=== PATIENT | female | born 1945 | race Caucasian/White ===

== ENCOUNTER 2017-04-02 22:50 | Observation (INO) | payer MEDICARE, OTHER ==
--- NOTE | ~2017-04-02 | DS ---
Discharge Summary [facility] [address] [place]. [address] NAME: MARLINE PUTNAM : 43 STATUS : DIS Esther PAT#: [id number] AGE: 71 ADM/REG DATE : 04/02/17 MR#: [id number] REPORT SERV DATE: 04/06/17 DICTATED BY: HUSSEIN BURCH DATE: 04/05/17 REPORT STATUS : Draft TRANSCRIBED BY: BEVERLY DATE: 04/05/17 ADMISSION DATE: 04/02/2017 DISCHARGE DATE: 04/05/2017 DISCHARGE DIAGNOSES: 1. Orthostatic hypotension. 2. Severe diarrhea. 3. Acute enteritis. 4. Presyncope. 5. Headaches. 6. Sinus bradycardia. 7. Chronic obstructive pulmonary disease/mild emphysema. DISCHARGE CONDITION: Stable. HISTORY OF PRESENT ILLNESS: For detailed HPI, please make reference to Dr. Cornelius Moran's dictation on 04/11/2017. In brief, this is a 71-year-old female with medical history of gastroesophageal reflux disease, COPD, who presented to [facility] Emergency Department with complaints of generalized weakness, dizziness, fatigue and diarrhea. Of note, prior to presentation of her symptoms, the patient reported that she ate a rewarmed meal of rice, chicken, jello, and milk. Went to bed, five hours later developed severe diarrhea, started feeling dizzy. However, she has developed a headache that was the worst headache of her life. Hence, she decided to go to the emergency department for further evaluation. At the emergency room at [facility], a chest x-ray was done that was concerning for possible atypical pneumonia versus pulmonary edema. Given the presence of bradycardia on EKG, [facility] decided to transfer the patient to our facility because the patient's primary Cardiology is affiliated with [facility]. On arrival to [facility], vitals, temperature was 96.7, pulse was 63 beats per minute, respiratory rate 16 cycles per minute, saturating 94% on room air. Blood pressure was 102/52, repeat blood pressure was in the 90s. Physical exam noted for mild inspiratory rales bilaterally in the lower lung bases. LABORATORY DATA: Notable for a white cell count of 10.1, hemoglobin of 14.4, hematocrit of 44.2, platelets of 275. Sodium of 139, creatinine of 0.7. An assessment of dizziness secondary to possible orthostatic hypotension/dehydration as well as a possible pneumonia was made on initial evaluation, and patient was admitted to the Hospitalist Service. HOSPITAL COURSE: 1. Presyncope. The patient continued to have persistent dizziness despite aggressive IV fluid resuscitation. She was feeling lightheaded during the course of this admission. No loss of consciousness. No syncopal episode. The patient underwent a CT of the brain that shows no acute intracranial pathology. Given persistent dizziness despite IV fluid resuscitation, an MRI of the brain was obtained that was essentially within normal limits. MRA of the cranial circulation does not demonstrate a significant focal stenosis or aneurysm. MRI of the neck does not demonstrate carotid artery or vertebral Discharge Summary [facility] [address] [facility] [place]. [address] NAME: MARLINE PUTNAM : 43 STATUS : DIS Esther PAT#: [id number] AGE: 71 ADM/REG DATE : 04/02/17 MR#: [id number] REPORT SERV DATE: 04/06/17 DICTATED BY: HUSSEIN BURCH DATE: 04/05/17 REPORT STATUS : Draft TRANSCRIBED BY: BEVERLY DATE: 04/05/17 artery stenosis. The patient was continued on IV fluid resuscitation with symptomatic treatment. Prior to discharge, the patient reported that her headache had completely resolved. Dizziness and presyncopal episodes have also completely resolved. Also during the course of this admission, given no persistent cough, no fever, a procalcitonin was obtain that was less than 0.05. A CT of the chest was also obtained that shows no evidence of pneumonia, hence empiric IV antibiotics was discontinued prior to discharge. Pneumonia was ruled out in this patient prior to discharge. The patient was advised to continue follow up with her primary care physician. 2. Sinus bradycardia. The patient is well known to [facility] Cardiology. We obtained medical record from [facility] that showed the patient had recently undergone an extensive cardiac workup including a cardiac stress test for evaluation of sinus bradycardia. The patient's heart rate remains in the 50s throughout the course of this admission. The patient was not on any beta hina prior to presentation or during the course of this admission. Prior to discharge, heart rate was in the 50s, but she remained asymptomatic. The patient was advised to continue follow up with her primary care and travel cota. 3. Acute enteritis likely secondary to food poisoning. The patient presented with worsening acute diarrhea five hours after eating a rewarmed meal. The patient's diarrhea was treated symptomatically and completely resolved prior to discharge. The patient was advised to continue follow up with her primary care physician. DISCHARGE MEDICATIONS: 1. Aspirin 81 mg p.o. daily. 2. Protonix 40 mg p.o. daily. DISCHARGE DISPOSITION: Home. DISCHARGE FOLLOWUP: 1. Follow up with primary care physician within one to two weeks of discharge. 2. Follow up with Cardiology within two to three weeks of discharge. DISCHARGE ACTIVITIES: As tolerated. 35 minutes was used to prepare this patient's discharge, reconcile medication, advise the patient on discharge plans and followup. DICTATED BY: MD SILVINO Earl/BEVERLY Hussein Burch MD / [id number] Discharge Summary [address] [address] NAME: MARLINE PUTNAM : 43 STATUS : DIS Esther PAT#: [id number] AGE: 71 ADM/REG DATE : 04/02/17 MR#: [id number] REPORT SERV DATE: 04/06/17 DICTATED BY: HUSSEIN BURCH DATE: 04/05/17 REPORT STATUS : Draft TRANSCRIBED BY: BEVERLY DATE: 04/05/17 CC: MD Maida Earl
--- NOTE | ~2017-04-02 | HP ---
History And Physical [address] [place]. [address] NAME: MARLINE PUTNAM : 43 STATUS : ADM Esther PAT#: [id number] AGE: 71 ADM/REG DATE : 04/02/17 MR#: [id number] REPORT SERV DATE: 04/03/17 DICTATED BY: JAVIER PRUITT DATE: 04/03/17 REPORT STATUS : Draft TRANSCRIBED BY: MODL DATE: 04/03/17 DATE OF ADMISSION: 04/02/2017 POINT OF ENTRY: Transfer from [facility] Emergency Department. PRIMARY CARE PHYSICIAN: Nurse practitioner, Maida Donahue. PRIMARY SOFTWARE PACKAGING ENGINEER: Keyon Howard M.D. CHIEF COMPLAINT: Headache and dizziness. HISTORY OF PRESENT ILLNESS: Ms. Putnam is a 71-year-old female with a history of gastroesophageal reflux disease as well as COPD, who presents to the emergency department at [facility] Emergency Department with a one-day history of multiple complaints including headache, dizziness, weakness, fatigue as well as a recent episode of diarrhea. The patient states that she was feeling well up until Tuesday morning when she had a severe bout of diarrhea and abdominal pain which lasted a few hours and then has resolved on its own. She felt better this morning, but then as the day progressed she felt very weak and dizzy as well as fatigued. She has developed a very severe bitemporal headache with some neck pain. Just generally not feeling well. She presented to an Urgent Care Facility near her home and then was referred to the emergency department. In the emergency department at [facility] she underwent a CT scan of the brain that was unremarkable. Chest x-ray concerning for atypical pneumonia versus pulmonary edema. Labs were otherwise unremarkable. Vitals were notable for bradycardia. EKG showed sinus bradycardia with heart rates in the low 50s. The patient was given some fluids and antibiotics, and transferred to [facility]. She denies any fevers, night sweats, chills, chest pain, palpitations, shortness of breath, cough, sputum production, wheezing, sinus congestion, sinus drainage, abdominal pain, nausea, vomiting, constipation, dysuria, lower extremity edema, melena, hematochezia, hemoptysis, or hematemesis. She states that the dizziness is primarily with exertion and ambulation, not at rest or with changes in position while supine. A comprehensive system otherwise negative unless listed in history of present illness. PAST MEDICAL HISTORY: 1. Gastroesophageal reflux disease. 2. COPD. 3. Bradycardia. PAST SURGICAL HISTORY: 1. Bilateral cataracts. 2. Abdominal hysterectomy. History And Physical [address] [place]. [address] NAME: MARLINE PUTNAM : 43 STATUS : ADM Esther PAT#: [id number] AGE: 71 ADM/REG DATE : 04/02/17 MR#: [id number] REPORT SERV DATE: 04/03/17 DICTATED BY: JAVIER PRUITT DATE: 04/03/17 REPORT STATUS : Draft TRANSCRIBED BY: BEVERLY DATE: 04/03/17 ALLERGIES: TO CODEINE. HOME MEDICATIONS: 1. Aspirin 81 mg daily. 2. Multivitamin one tablet daily. 3. Protonix 40 mg daily. SOCIAL HISTORY: She is a former smoker, quit about nine years ago. Has about at least a 50- pack year smoking history. Denies alcohol. Denies illicits. FAMILY MEDICAL HISTORY: Mother with diabetes. Father with COPD. Siblings with diabetes. LABS AND IMAGING: All obtained from transfer records from [facility] Emergency Department. 1. White count is 10.1, hemoglobin is 14.4, hematocrit is 44.2, and platelet count is 275. 2. Sodium is 139, potassium 4.0, chloride 101, carbon dioxide 30, BUN 14, creatinine 0.7, glucose is 113, calcium is 10.3, protein is 8.1, albumin is 4.3, bilirubin is 0.3, ALT is 35, AST 31, and alkaline phosphatase is 111. 3. Lipase is 222. 4. Troponin less than 0.02. 5. Urinalysis; spec gravity is 1.015. No evidence of any infection. 6. Chest x-ray per outside Radiology review shows prominent interstitial markings concerned for atypical pneumonia, superimposed in the setting of COPD versus possible pulmonary edema. 7. CT scan of the brain shows no acute intracranial abnormality. 8. Chest x-ray performed here per my review also shows prominent interstitial markings concerning for heart failure type pattern versus infiltrate or atelectasis. 9. EKG per my review shows sinus bradycardia with a heart rate of 51, but no evidence of any acute ischemia or infarction. PHYSICAL EXAMINATION: VITAL SIGNS: Temperature is 96.9 degrees Fahrenheit, pulse is 53, respirations 16, saturating 94% on room air, and blood pressure 102/52. GENERAL: The patient is awake, alert, and in no acute distress. Resting comfortably in bed. She is a well-developed, well-nourished, female. Sister is at bedside. HEENT: Atraumatic and normocephalic. Moist mucous membranes. Pupils are equal, round, reactive to light and accommodation. Extraocular eye movements intact. No scleral icterus. NECK: No jugular venous distention. No carotid bruits. CARDIAC: Bradycardic rate, regular rhythm. No murmurs or gallops. Normal S1, S2. LUNGS: Does have some inspiratory rales in the bilateral bases, but no wheezes, rhonchi, or crackles appreciated. ABDOMEN: Soft, nontender, and nondistended. Good bowel sounds. No rebound, guarding, or rigidity. EXTREMITIES: Warm and perfused. No cyanosis, clubbing, or edema. SKIN: Warm and dry. PSYCH: Affect appropriate. History And Physical [address] [address] NAME: MARLINE PUTNAM : 43 STATUS : ADM Esther PAT#: [id number] AGE: 71 ADM/REG DATE : 04/02/17 MR#: [id number] REPORT SERV DATE: 04/03/17 DICTATED BY: JAVIER PRUITT DATE: 04/03/17 REPORT STATUS : Draft TRANSCRIBED BY: BEVERLY DATE: 04/03/17 NEURO: Alert and oriented x3. Cranial nerves 2 through 12 are grossly intact. Speech is normal. Gait not assessed. ASSESSMENT AND PLAN: Ms. Putnam is a 71-year-old female, who presents to [facility] with multiple somatic complaints including headaches, dizziness, weakness, and recent diarrheal illness, and was found to have evidence of bradycardia possible dehydration as well as possible pneumonia. PROBLEM LIST: 1. Sinus bradycardia. 2. Possible pneumonia versus pulmonary edema. 3. Dehydration. 4. Headache. 5. Dizziness. PLAN: 1. Sinus bradycardia. Per review of records available to me in [facility] it appears that the patient's bradycardia is likely chronic as there are multiple EKGs from 2016 which document sinus bradycardia with heart rates as low as 45 and as high as the upper 50s. She is not on any beta blockers. We will check thyroid function studies. Given the chronic nature of bradycardia I doubt that the patient's complaints of weakness, fatigue, and dizziness are due to her bradycardia, but we will continue to monitor. 2. Possible pneumonia versus pulmonary edema. The patient does have some abnormal appearing chest x-rays. Of note, per review of history it appears the patient does have some scarring on previous x-rays and CT scan of the chest which I am unable to access at this time. We will follow up Radiology read of our chest x-ray here as well as obtain a CT scan of the chest for better imaging. We will empirically treat for pneumonia at this time. Also checking a BNP level to evaluate for possible pulmonary edema; however, she appears euvolemic on the rest of my exam. 3. Dehydration. The patient does have a mildly elevated BUN to creatinine ratio as well as elevated spec gravity concerning for possible dehydration. We will provide some gentle IV fluid hydrations. 4. Dizziness. I suspect this is all due to maybe some mild dehydration due to a recent diarrheal illness. Provide some IV fluid hydration and continue to monitor. Checking orthostatic vital signs. The patient denies any vertiginous type symptoms. 5. Headache. CT scan of the brain was unremarkable. We will trial some NSAID and if need be Reglan or Tylenol for symptomatic relief. 6. DVT prophylaxis. Lovenox subcu. CODE STATUS: The patient wished to be full code. JCB/RADHAL Javier Pruitt MD History And Physical [address] [address] NAME: MARLINE PUTNAM : 43 STATUS : ADM Esther PAT#: [id number] AGE: 71 ADM/REG DATE : 04/02/17 MR#: [id number] REPORT SERV DATE: 04/03/17 DICTATED BY: JAVIER PRUITT DATE: 04/03/17 REPORT STATUS : Draft TRANSCRIBED BY: MODL DATE: 04/03/17 / [id number] CC: Iwayemi O. MD Maida Morris NP Allen E Atchley, M.D.
[~2017-04-02 22:50] MED LIST: ASAB PO; CENTRUM PO; CINNAMONPO PO; FISH OIL OTC PO; GARLIC OTC PO; HARD NAILS PO; PROTONIX PO; SUCR PO; VITAMIN D OTC PO; ZANTAC 150 PO
[2017-04-02] MEDS ORDERED: HALF81 PO (23:17)
[2017-04-02] MEDS ORDERED: PROTONIX PO (23:17)
[2017-04-02] MEDS ORDERED: THERGRANM PO (23:17)
[2017-04-03 01:28] LABS: TROPONIN I <0.02 NG/ML (<0.05); ULTRASENSITIVE TSH 0.661 MCIU/ML (0.358-3.740)
[2017-04-03 05:06] LABS: BASOPHILS 0.3 %; BASOPHILS ABSOLUTE 0.02 10/3/uL (0.0-0.16); EOSINOPHILS 3.9 %; EOSINOPHILS ABSOLUTE 0.26 10/3/uL (0.0-0.53); HEMATOCRIT 39.7 % (36.0-48.0); HEMOGLOBIN 12.8 g/dL (12.0-16.0); IMMATURE GRANULOCYTES 0.2 %; IMMATURE GRANULOCYTES ABSOLUTE 0.01 10/3/uL (0.0-0.11); LYMPHOCYTES 28.7 %; MEAN CORPUS HGB CONC 32.2 g/dL (32.0-36.0); MEAN CORPUSCULAR HEMOGLOB 32.1 pg (26.0-34.0); MEAN CORPUSCULAR VOLUME 99.5 fL (80-100); MEAN PLATELET VOLUME 9.7 fL (9.2-13.0); MONOCYTES 12.7 %; MONOCYTES ABSOLUTE 0.84 10/3/uL (0.21-1.20); NEUTROPHILS 54.2 %; PLATELET COUNT 245 10/3/uL (150-400); RBC DISTRIBUTION WIDTH 12.5 % (12.0-16.0); RED CELL COUNT 3.99 10/6/uL (4.0-5.6); WHITE BLOOD CELLS 6.6 10/3/uL (4.5-10.5)
[2017-04-03 05:07] LABS: MANUAL DIFF NO %
[2017-04-03 05:20] LABS: BUN (BLOOD UREA NITROGEN) 9 MG/DL (6-23); CALCIUM, SERUM 8.5 MG/DL (8.5-10.4); CHLORIDE, SERUM 111 MMOL/L (96-112); CO2 (CARBON DIOXIDE) 29 MMOL/L (24-34); CREATININE 0.68 MG/DL (0.55-1.02); GFR AFRICAN AMERICAN 101 ML/MIN (>=60); GFR NON AFRICAN AMERICAN 87 ML/MIN (>=60); GLUCOSE, SERUM 105 MG/DL (60-99); POTASSIUM, SERUM 3.9 MMOL/L (3.5-5.3); SODIUM, SERUM 144 MMOL/L (135-148)
[2017-04-04 04:54] LABS: BASOPHILS 0.5 %; BASOPHILS ABSOLUTE 0.03 10/3/uL (0.0-0.16); EOSINOPHILS 5.9 %; EOSINOPHILS ABSOLUTE 0.34 10/3/uL (0.0-0.53); HEMATOCRIT 38.6 % (36.0-48.0); HEMOGLOBIN 12.4 g/dL (12.0-16.0); IMMATURE GRANULOCYTES 0.3 %; IMMATURE GRANULOCYTES ABSOLUTE 0.02 10/3/uL (0.0-0.11); LYMPHOCYTES 35.2 %; LYMPHOCYTES ABSOLUTE 2.02 10/3/uL (0.67-4.30); MEAN CORPUS HGB CONC 32.1 g/dL (32.0-36.0); MEAN CORPUSCULAR HEMOGLOB 32.3 pg (26.0-34.0); MEAN CORPUSCULAR VOLUME 100.5 fL (80-100); MEAN PLATELET VOLUME 10.1 fL (9.2-13.0); MONOCYTES ABSOLUTE 0.63 10/3/uL (0.21-1.20); NEUTROPHILS 47.1 %; PLATELET COUNT 229 10/3/uL (150-400); RBC DISTRIBUTION WIDTH 12.7 % (12.0-16.0); RED CELL COUNT 3.84 10/6/uL (4.0-5.6); WHITE BLOOD CELLS 5.7 10/3/uL (4.5-10.5)
[2017-04-04 04:56] LABS: MANUAL DIFF NO %
[2017-04-04 05:03] LABS: BUN (BLOOD UREA NITROGEN) 13 MG/DL (6-23); CALCIUM, SERUM 8.7 MG/DL (8.5-10.4); CHLORIDE, SERUM 111 MMOL/L (96-112); CO2 (CARBON DIOXIDE) 29 MMOL/L (24-34); GFR AFRICAN AMERICAN 100 ML/MIN (>=60); GFR NON AFRICAN AMERICAN 87 ML/MIN (>=60); GLUCOSE, SERUM 97 MG/DL (60-99); PHOSPHORUS, SERUM 3.3 MG/DL (2.5-4.5); POTASSIUM, SERUM 4.2 MMOL/L (3.5-5.3); SODIUM, SERUM 143 MMOL/L (135-148)
== END 2017-04-05 10:00 | disposition home or self-care (01) ==
LOC: 7NO 22:50
PROVIDERS: Hospitalist; Internal Medicine
DX: I95.1 Orthostatic hypotension (principal); K52.9 Noninfective gastroenteritis and colitis, unspecified; R00.1 Bradycardia, unspecified; J44.9 Chronic obstructive pulmonary disease, unspecified; K21.9 Gastro-esophageal reflux disease without esophagitis; Z98.41 Cataract extraction status, right eye; Z98.42 Cataract extraction status, left eye; Z90.710 Acquired absence of both cervix and uterus; Z87.891 Personal history of nicotine dependence; Z83.3 Family history of diabetes mellitus; Z83.6 Family history of other diseases of the respiratory system; Z79.82 Long term (current) use of aspirin; Z79.899 Other long term (current) drug therapy
CPT/HCPCS: 70544; 70547; 70551; 71010; 71250; 80048; 83735; 83880; 84100; 84436; 84443; 84484; 85025; 93005; 96372; 96374; 96375; 96376; A9270-GY; G0378; J0456